=== PATIENT | male | born 1985 | race Caucasian/White ===

== ENCOUNTER 2017-09-09 08:42 | Emergency (ER) | payer OTHER ==
[2017-09-09] MEDS: METOPROLOL TARTRATE 50 MG TABLET ONE (09:20)
[2017-09-09] MEDS: METOPROLOL TARTRATE 25 MG TABLET PO ONE ×2 (09:21)
[2017-09-09] MEDS: METOPROLOL TARTRATE 50 MG TABLET PO ONE (09:44)
--- NOTE | 2017-09-09 09:51 | ED Physician Documentation ---
Abdominal Pain - HISTORIAN Historian: patient - HPI Stated Complaint: Muscle cramps Chief Complaint: Abdominal Pain Additonal Information: abd flank pain now rt lower flank but has intermittently-occ high abd now rlq- has freq cough-happens every winter- now prod sputum in excess-thinks maybe cigarettes. pts BP sig elevated has been off metoprolol few weeks. [employer]- also int back pain Onset: days ago (recurrent this episode past 5-6 days) Duration: waxing, waning Timing: worse (rates 8-10) Context: denies: out of country travel Severity: moderate Quality: pain, cramping, sharp Associated Symptoms: none Exacerbated by: nothing (lifting coughing) Relieved by: nothing - ROS CONST: no problems GI/: denies: constipation, black stools, problems urinating CVS/RESP: none, hurts to breath, cough EYES/ENT: none MS/SKIN/LYMPH: none NEURO/PSYCH: none - SOCIAL HX Smoking History: less than 1 pack/day Alcohol Use: occasionally (2-3 each week end) Drug Use: none - FAMILY HX Family History: other (HTN GERD INSOMNIA) - PAST HX Past History: other Surgeries/Procedures: other (BILAT ING HERNIA) Home Medications: Ambulatory Orders Medication Instructions Recorded Metoprolol Tartrate [Lopressor] 25 mg PO DAILY 09/09/17 Allergies/Adverse Reactions: Allergies Allergy/AdvReac Type Severity Reaction Status Date / Time No Known Allergies Allergy Verified 09/09/17 09:22 - VITAL SIGNS Vital Signs: Vital Signs Temp Pulse Resp BP Pulse Ox 98.2 F 141 H 26 H 193/123 95 09/09/17 08:45 09/09/17 08:45 09/09/17 08:45 09/09/17 08:45 09/09/17 08:45 - REVIEWED ASSESSMENTS Nursing Assessment Reviewed: Yes Vitals Reviewed: Yes ED Results Lab/Radiology - Lab Results Lab Results: Lab Results 09/09/17 09/09/17 10:00 10:00 WBC 8.00 K/ul K/ul (4.00-12.00) RBC 4.97 M/ul M/ul (3.90-5.20) Hgb 15.7 g/dL g/dL (12.0-18.0) Hct 46.7 % % (37.0-53.0) MCV 94.0 fl fl (80.0-100.0) MCH 31.5 pg pg (28.0-34.0) MCHC 33.6 g/dL g/dL (30.0-36.0) RDW 13.8 % % (11.3-14.3) Plt Count 165 K/mm3 K/mm3 (130-400) Neut % (Auto) 64.3 % % (39.0-79.0) Lymph % (Auto) 26.8 % % (16.0-50.0) [place] % (Auto) 5.2 % % (0.0-11.0) Eos % (Auto) 1.3 % % (0.0-6.8) Baso % (Auto) 0.3 (0.0-1.5) Neut # (Auto) 5.2 # k/uL # k/uL (1.4-7.7) Lymph # (Auto) 2.2 # k/uL # k/uL (0.6-4.0) [place] # (Auto) 0.4 # k/uL # k/uL (0.0-0.9) Eos # (Auto) 0.1 # k/uL # k/uL (0.0-0.6) Baso # (Auto) 0.0 # k/uL # k/uL (0.0-0.5) Reactive Lymphs % 2.1 % % (0.0-5.0) Reactive Lymphs # 0.2 # k/uL # k/uL (0.0-0.8) Sodium 140 mmol/L mmol/L (136-145) Potassium 3.9 mmol/L mmol/L (3.5-5.1) Chloride 102 mmol/L mmol/L (98-107) Carbon Dioxide 25 mmol/L mmol/L (22-30) BUN 11 mg/dL mg/dL (9-20) Creatinine 0.90 mg/dL mg/dL (0.66-1.25) Estimated Creat Clear 209 Est GFR ( Amer) > 60 (60 - ) Est GFR (Non-Af Amer) > 60 (60 - ) Glucose 111 mg/dL H mg/dL (74-106) Calcium 8.9 mg/dL mg/dL (8.4-10.2) Total Bilirubin 0.8 mg/dL mg/dL (0.2-1.3) AST 94 U/L H U/L (15-46) ALT 138 U/L H U/L (13-69) Alkaline Phosphatase 111 U/L U/L (38-126) Total Protein 7.5 g/dL g/dL (6.3-8.2) Albumin 4.3 g/dL g/dL (3.5-5.0) - Radiology Radiology Impressions: cxr=wnl abd= xs gas feces - Orders Orders: ED Orders Category Date Time Status ABD SERIES PA CHEST [RAD] Stat Exams 09/09/17 Taken CBC/PLATELET/DIFF Routine Lab 09/09/17 10:00 Completed CMP Routine Lab 09/09/17 10:00 Completed URINALYSIS Routine Lab 09/09/17 Ordered Metoprolol Tartrate [Lopressor] Med 09/09/17 08:59 Discontinued 25 mg PO NOW ONE Metoprolol Tartrate [Lopressor] Med 09/09/17 08:59 Discontinued 25 mg PO NOW ONE Metoprolol Tartrate [Lopressor] Med 09/09/17 09:01 Discontinued 50 mg .ROUTE .STK-MED ONE Metoprolol Tartrate [Lopressor] Med 09/09/17 09:44 Discontinued 50 mg PO NOW ONE EKG WITH COMPARISON Stat Ther 09/09/17 Ordered Abdominal Pain Physical Exam - Physical Exam General Appearance: moderate distress EENT: eye inspection normal NECK: normal inspection RESPIRATORY: no resp distress, wheezes (SLIGHT) CVS: reg rate & rhythm, heart sounds normal ABDOMEN: soft, tenderness (RLQ) BACK: CVA tenderness (R) SKIN: warm/dry, normal color. No: cyanosis, diaphoresis, jaundice EXTREMITIES: non-tender, normal range of motion NEURO: oriented X3, motor nml, sensation nml, mood/affect nml Vital Signs: Vital Signs Temp Pulse Resp BP Pulse Ox 98.2 F 141 H 26 H 193/123 95 09/09/17 08:45 09/09/17 08:45 09/09/17 08:45 09/09/17 08:45 09/09/17 08:45 Discharge Clincal Impression: Abdominal wall pain in right flank Referrals: Tala Colon, PRN [Primary Care Provider] - 2 Days Comments: to do bowel clean out plus IBU 600 TID+ RX FOR NORCO SUPPLEMENT Decision to Admit: NO Decision Time: 11:30
[2017-09-09 10:09] LABS: BASOPHILS % 0.3 (0.0-1.5); EOSINOPHILS % 1.3 % (0.0-6.8); MEAN CORPUSCULAR HEMOGLOBIN 31.5 pg (28.0-34.0); MONOCYTES % 5.2 % (0.0-11.0); NEUTROPHILS # 5.2 # k/uL (1.4-7.7)
[2017-09-09 10:17] LABS: eGFR (African) > 60; eGFR (Non-African) > 60
[2017-09-09 11:35] VITALS: BP 157/103
--- NOTE | 2017-09-09 13:48 | Diagnostic Imaging Report ---
FATOUMATA PARHAM [facility] [id number] [facility] [address] [address] Report Submission Date: Sep 09, 2017 10:20:52 AM DELI MANAGER Patient Study Name: ANDREA ROACH Date: Sep 09, 2017 9:52:12 AM DELI MANAGER Modality Type: DX Gender: M Description: ABDOMEN : 89 Institution: [facility] Physician: FATOUMATA PARHAM Obstructive series with chest radiographs, 4 images History: Abdominal pain the, low back pain, cough Findings: Included chest radiograph is normal. The bowel gas pattern is normal. There is no obstruction, free intraperitoneal air or pathologic calcification. Impression: Normal bowel gas pattern. Electronically signed on Sep 09, 2017 10:20:52 AM DELI MANAGER by: Timur HEATH
[2017-09-09 13:50] LABS: APPEARANCE,URINE CLEAR (CLEAR); COLOR,URINE YELLOW (YELLOW); OCCULT BLOOD,URINE NEGATIVE (NEGATIVE); PH URINE 6.5 (5.0 - 8.0); UROBILINOGEN URINE 0.2 Eu (0.2-1.0)
== END 2017-09-09 11:32 ==
LOC: ED 08:42
DX: R10.9 Unspecified abdominal pain (principal); K56.41 Fecal impaction
CPT/HCPCS: 74022; 80053; 81002; 85025; 99283

== ENCOUNTER 2018-11-11 17:53 | Outpatient (CLI) | payer OTHER ==
[2018-11-11 18:30] LABS: eGFR (Non-African) > 60
== END 2018-11-11 17:54 ==
LOC: LAB 17:53
PROVIDERS: ATTEND Nurse Practitioner Family
DX: R94.5 Abnormal results of liver function studies (principal)
CPT/HCPCS: 36415; 80053